=== PATIENT | female | born 1980 | race Caucasian/White ===

== ENCOUNTER 2018-04-07 13:48 | Day surgery (SDC) | payer OTHER ==
[~2018-04-07 13:48] MED LIST: ALPR.25 PO; CLON.5 PO; EPIN.3I IM; NORT25 PO; PERM5TC TOP; RIZATRIPTAN10 MG PO; SULTRIDS PO; SUMA25 PO; TOPI50 PO; TRIA80TC TOP
--- NOTE | 2018-04-07 14:56 | NUR ---
04/07/18 5124 Mireya Perez TOOK REPORT FROM [facility].FLL PREOP TEACHING COMPLETED WITH PATIENT. DISCUSSED DISCHARGE SHEET WITH PT, ALL QUESTIONS ANSWERED. CALL LIGHT IN REACH, BED IN LOWEST POSITION.
--- NOTE | 2018-04-07 17:08 | NUR ---
04/07/18 170 Ledy Aguilar DRESSING SITE #3 BAND AID ON ABDOMEN CDI DRESSING SITE #4 JAISON PAD. NO BLOOD ON THIS TIME.
--- NOTE | 2018-04-07 17:22 | NUR ---
04/07/18 172 Ledy Aguilar PT INTO RECLINER 1716. PT C/O 11/19 RT EAR PAIN. PT STATES "I'VE HAD AN EARACHE SINCE 2 DAYS BEFORE MY SURGERY." PT DENIES OTHER PAIN AND NAUSEA AT THIS TIME. ABDOMINAL BANDAIDS X3 CDI. JAISON PAD WITH MADONNA UNDERWEAR APPLIED WITH TRANSFER INTO RECLINER. SCANT BLEEDING VISIBLE ON TRANSFER GURMODENA. TOLERATING PO FLUIDS WELL. UNABLE TO REACH ROOMMATE AT THIS TIME.
== END 2018-04-07 17:50 | disposition home or self-care (01) ==
LOC: ORSCSDS 13:48
PROVIDERS: Obstetrics & Gynecology
PROC: 0UDB8ZX Extraction of Endometrium, Via Natural or Artificial Opening Endoscopic, Diagnostic (ICD-10-PCS; principal; 2018-04-07 15:00)
PROC: 0UT74ZZ Resection of Bilateral Fallopian Tubes, Percutaneous Endoscopic Approach (ICD-10-PCS; principal; 2018-04-07 15:00)
PROC: 0U5F4ZZ Destruction of Cul-de-sac, Percutaneous Endoscopic Approach (ICD-10-PCS; principal; 2018-04-07 15:00)
DX: N92.0 Excessive and frequent menstruation with regular cycle (principal); N80.3 Endometriosis of pelvic peritoneum; Z30.2 Encounter for sterilization; F84.5 Asperger's syndrome; R73.03 Prediabetes; Z79.899 Other long term (current) drug therapy
CPT/HCPCS: 88302; 88305; J1100; J2250; J2405; J2710; J3010; J7120

== ENCOUNTER 2018-09-26 07:17 | Day surgery (SDC) | payer OTHER ==
[~2018-09-26] VITALS: Ht 175.3 cm; Wt 89.4 kg
--- NOTE | 2018-09-26 08:03 | NUR ---
Ambulatory in Day Surgery History, Chart, Medications and Allergies reviewed before start of procedure.Lungs clear T/O to Auscultation. Patient confirms NPO status and agrees with scheduled surgery. Patient reports completing Chlorhexadine shower X2 prior to admission to hospital.Surgical site prepped with 2% Chlorhexidine cloth wipe.
--- NOTE | 2018-09-26 12:06 | NUR ---
PT ARRIVED TO UNIT AT APROX 1145 ON BED. PT HAS 2 LAP SITES SS C/D/I. DENIES PAIN. TOLERATING SMALL AMOUNTS OF CLEAR LIQUIDS. FERRIS PATENT, DRAINING CLEAR YELLOW URINE.
--- NOTE | 2018-09-27 00:15 | NUR ---
ASSUMED CARE OF PT. NO DISTRESS NOTED, PT DENIES NEEDS AT THIS TIME. WILL CONT TO MONITOR AND TX PER ORDERS.
[2018-09-27 05:01] LABS: BASOPHILS ABSOLUTE AUTO 0.05 K/mm3 (0.00-0.23); BASOPHILS PERCENT AUTO 0 % (0-2); EOSINOPHILS PERCENT AUTO 1 % (0-6); Hematocrit 37.4 % (33.0-51.0); Hemoglobin 12.4 g/dL (11.5-16.0); IMMATURE GRAN ABSOLUTE AUTO 0.05 K/mm3 (0.00-0.10); IMMATURE GRAN PERCENT AUTO 0 % (0-1); LYMPHOCYTES ABSOLUTE AUTO 2.59 K/mm3 (0.84-5.20); LYMPHOCYTES PERCENT AUTO 17 % (21-46); MONOCYTES ABSOLUTE AUTO 1.01 K/mm3 (0.16-1.47); MONOCYTES PERCENT AUTO 7 % (4-13); Mean Corpuscular HGB 29.3 pg (26.0-34.0); Mean Corpuscular HGB Conc 33.2 g/dL (31.5-36.5); Mean Corpuscular Volume 88 fL (80-100); Mean Platelet Volume 10.6 fL (9.1-12.4); NEUTROPHILS ABSOLUTE AUTO 11.44 K/mm3 (1.96-9.15); NEUTROPHILS PERCENT AUTO 75 % (41-73); Platelet Count 237 K/mm3 (150-400); RDW Coefficient Variation 13.1 % (11.7-14.2); RDW Standard Deviation 42.3 fL (35.1-46.3); Red Blood Cell Count 4.23 M/mm3 (3.80-5.20); White Blood Cell Count 15.24 K/mm3 (4.00-11.30)
--- NOTE | 2018-09-27 06:39 | NUR ---
POD 1 S/P LAVH. PT VSS TO NIGHT. PT REP MINIMAL PAIN T/O NIGHT, NO C/O N/V. SCANT VAGINAL BLEEDING. FERRIS CATH D/C THIS AM, AWAITING FIRST VOID. PT USING CALL LIGHT FOR ASSISTANCE, WILL CONT TO MONITOR UNITL REP GIVEN TO ONCOMING RN.
[2018-09-27] MEDS ORDERED: CELE400 PO (09:27)
[2018-09-27] MEDS ORDERED: DOCU100 PO (09:27)
[2018-09-27] MEDS ORDERED: HYDMOR2 PO (09:27)
[2018-09-27] MEDS ORDERED: ONDA4ODT SL (09:28)
--- NOTE | 2018-09-27 10:42 | NUR ---
PATIENT D/C'D HOME WITH FRIEND AT THIS TIME. PATIENT VOIDING WELL, TOLERATING PO, STATES PAIN CONTROLLED. PATIENT STATES UNDERSTANDING OF MEDS, ACTIVITY, WOUND CARE, F/U APPT, ETC. NO C/O AT THIS TIME.
== END 2018-09-27 10:46 | disposition home or self-care (01) ==
LOC: ORSCMMR 07:17 → ORD 07:30 → ORSCMMR 08:45 → ORD 10:00 → SURS 11:52 → ORSCMMR 09-27 10:46
PROVIDERS: Obstetrics & Gynecology
PROC: 0UT9FZZ Resection of Uterus, Via Natural or Artificial Opening With Percutaneous Endoscopic Assistance (ICD-10-PCS; principal; 2018-09-26 08:45)
PROC: 0UT2FZZ Resection of Bilateral Ovaries, Via Natural or Artificial Opening With Percutaneous Endoscopic Assistance (ICD-10-PCS; principal; 2018-09-26 08:45)
DX: N80.3 Endometriosis of pelvic peritoneum (principal); D25.9 Leiomyoma of uterus, unspecified; N83.12 Corpus luteum cyst of left ovary; F84.5 Asperger's syndrome; F41.9 Anxiety disorder, unspecified; Z79.899 Other long term (current) drug therapy
CPT/HCPCS: 36415; 82947; 85025; 88307; C1729; J0690; J1100; J1170; J1885; J2250; J2405; J2704; J2765; J3010; J7030; J7120